=== PATIENT | female | born 2000 | race Caucasian/White ===

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

== ENCOUNTER 2023-02-10 13:32 | Observation (INO) | payer BC, MEDICAID ==
[2023-02-10] MEDS ORDERED: SODIUM CHLORIDE 0.9% 1,000 ML IV STA (14:04)
--- NOTE | 2023-02-10 14:15 | ED ---
Abdominal Pain HPI - General Source: patient Mode of arrival: ambulatory Limitations: no limitations <Ruben Connre - Last Filed: 02/10/23 15:49> <Subhash Minor - Last Filed: 02/10/23 22:32> - General Chief Complaint: Abdominal Pain Stated Complaint: Abd Pain Time Seen by Provider: 02/10/23 14:04 - History of Present Illness Initial Comments: 22-year-old female presenting to the ED with chief complaint of abdominal pain. Patient states pain started 2 days ago. States since onset of pain, pain has increased in severity. Pain is currently a 6/10 in severity. It is achey/sharp and constant in nature. Today she states she started to experience nausea and had one episode of bilious vomiting. No other complaints. (Ruben Conner) - Related Data Home Medications Medication Instructions Recorded Confirmed traZODone HCL 150 mg PO HS PRN 02/10/23 02/10/23 Allergies Allergy/AdvReac Type Severity Reaction Status Date / Time No Known Allergies Allergy Verified 02/10/23 16:36 Review of Systems ROS Other: All systems not noted in ROS Statement are negative. <Ruben Conner - Last Filed: 02/10/23 15:49> ROS Other: All systems not noted in ROS Statement are negative. <Subhash Minor - Last Filed: 02/10/23 22:32> ROS Statement: Those systems with pertinent positive or pertinent negative responses have been documented in the HPI. Past Medical History Past Medical History: Asthma History of Any Multi-Drug Resistant Organisms: None Reported Past Surgical History: Tonsillectomy Additional Past Surgical History / Comment(s): left hip surgery Past Psychological History: Anxiety, Depression Smoking Status: Current every day smoker Past Alcohol Use History: Occasional Past Drug Use History: Marijuana <Ruben Conner - Last Filed: 02/10/23 15:49> General Exam Limitations: no limitations General appearance: alert, in no apparent distress Head exam: Present: atraumatic, normocephalic Eye exam: Present: normal appearance ENT exam: Present: mucous membranes moist Respiratory exam: Present: normal lung sounds bilaterally Cardiovascular Exam: Present: regular rate GI/Abdominal exam: Present: soft, tenderness (Tenderness in the right lower quadrant, negative Rosving's sign, positive psoas sign), normal bowel sounds Extremities exam: Present: normal inspection Neurological exam: Present: alert, oriented X3 Skin exam: Present: warm, dry <Ruben Conner - Last Filed: 02/10/23 15:49> Course <Subhash Minor - Last Filed: 02/10/23 22:32> Vital Signs 02/10/23 02/10/23 02/10/23 13:38 18:05 21:47 Temperature 98.6 F Pulse Rate 83 98 84 Respiratory 20 20 20 Rate Blood Pressure 114/79 115/71 114/77 O2 Sat by Pulse 99 98 99 Oximetry - Reevaluation(s) Reevaluation #1: 02/10/23 22:26 The patient was endorsed to me at shift change pending CAT scan results. (Subhash Minor) Medical Decision Making - Lab Data Result diagrams: 02/10/23 14:43 02/10/23 14:43 <Ruben Conner - Last Filed: 02/10/23 15:49> - Lab Data Result diagrams: 02/10/23 14:43 02/10/23 14:43 <Subhash Minor - Last Filed: 02/10/23 22:32> - Medical Decision Making Was pt. sent in by a medical professional or institution (, PA, MACHINIST/MACHINE BUILDER, urgent care, hospital, or [place]...) When possible be specific @ -Sent in by PCP to rule out appendicitis Did you speak to anyone other than the patient for history (EMS, parent, family, police, friend...)? What history was obtained from this source @ -[No] Did you review nursing and triage notes (agree or disagree)? Why? @ -[I reviewed and agree with nursing and triage notes] Were old charts reviewed (outside hosp., previous admission, EMS record, old EKG, old radiological studies, urgent care reports/EKG's, [place] health [place] records)? Report findings @ -[No old charts were reviewed] Differential Diagnosis (chest pain, altered mental status, abdominal pain women, abdominal pain men, vaginal bleeding, weakness, fever, dyspnea, syncope, headache, dizziness, GI bleed, back pain, seizure, CVA, palpatations, mental health, musculoskeletal)? @ -Differential Abdominal Pain Women: Appendicitis, Cholecystitis, diverticulosis, ischemic bowel, pancreatitis, hepatitis, UTI, gastroenteritis, AAA, incarcerated hernia, bowel obstruction, constipation, inflammatory bowel, hepatitis, peptic ulcer disease, splenic infarction, perforated viscus, vulvitis, ovarian torsion, PID, kidney stone, placenta abruption, this is not meant to be an all-inclusive list EKG interpreted by me (3pts min.). @ -[As above] X-rays interpreted by me (1pt min.). @ -[None done] CT interpreted by me (1pt min.). @ -N/A pending sign out U/S interpreted by me (1pt. min.). @ -[None done] What testing was considered but not performed or refused? (CT, X-rays, U/S, labs)? Why? @ -[None] What meds were considered but not given or refused? Why? @ -[None] Did you discuss the management of the patient with other professionals (professionals i.e. , PA, MACHINIST/MACHINE BUILDER, lab, RT, psych nurse, social work specialist, news cameraman, teacher, special technical operations officer, case manager specialist)? Give summary @ -[No] Was smoking cessation discussed for >3mins.? @ -[No] Was critical care preformed (if so, how long)? @ -[No] Were there social determinants of health that impacted care today? How? (Homelessness, low income, unemployed, alcoholism, drug addiction, transportation, low edu. Level, literacy, decrease access to med. care, alf, rehab)? @ -[No] Was there de-escalation of care discussed even if they declined (Discuss DNR or withdrawal of care, Hospice)? DNR status @ -[No] What co-morbidities impacted this encounter? (DM, HTN, Smoking, COPD, CAD, Cancer, CVA, ARF, Chemo, Hep., AIDS, mental health diagnosis, sleep apnea, morbid obesity)? @ -[None] Was patient admitted / discharged? Hospital course, mention meds given and route, prescriptions, significant lab abnormalities, going to OR and other pertinent info. @ -[hospital course] (Ruben Conner) Overt evidence of appendicitis. Patient did remain tender at McBurney's point. I did consult Dr. Pelletier who did recommend an ultrasound prior to any further consideration is ultrasound does show evidence of a complex cyst in the right ovary hemorrhagic cyst is considered. I did give her the results she did recommend admission for observation to medicine I did discuss also the case with Dr. Ballard and with Dr. Broussard. Patient will ultimately be admitted to the medicine service with consultation by surgery and TRAINING PERSONNEL SUPERVISOR.Was pt. sent in by a medical professional or institution (, [facility]HAM, MACHINIST/MACHINE BUILDER, urgent care, hospital, or [place]...) hen possibe be specific @ -[Ruben ROSARIO] Did you speak to anyone other than the patient for history (EMS, parent, family, police, friend...)? What history was otaned from this source @ -[No] Did you review nursing and triage notes (aree or disagree)? Why? @ -[I reviewed and agreewith nursing and triage notes] Were old charts reviewed (outside hosp., previous admission, EMS record, old EKG, old radiological studies, urgent care reports/EKG's, [place] rcords)? Report findings @ -[No old charts were reviewed] Differential Diagnosis (chest pain, altered mental status, abdominal pain women, abdominal pain men, vaginal bleeding, weakness, fever, dyspnea, syncope, headache, dizziness, GI bleed, back pain, seizure, CVA, palpatations, mental halth, musculoseletal)? @ -[Abdominal pain] EKG interreted byme (3pts min.). @ -[Not done] X-rays intepreted byme (1pt min.). @ -[None done] CT interpreted by me (1pt min.). @ -CT imaging interpreted by me evidence of appendicolith but no evidence of overt appendicitis ultrasound did show evidence of a complex right ovarian cyst and hemorrhagic cyst considered] U/S interreted by e (1pt. min.). @ -[None done] What testing was considered but not performed or refused? (CT,X-edwin, U/S, labs)? Why? @ -[None] What meds were considered but nt gien or refused? Why? @ -[None] Did you discuss the management of the patient with other professionals (vinicio cali i.e. , ABRAHAM, MACHINIST/MACHINE BUILDER, lab, RT, psych nurse, social work specialist, news cameraman, teacher, special technical operations officer, software project manager)? Give summary @ -[Dr. Pelletier, and Dr. Broussard] Was smoking cessatin iscussed for >3mins.? @ -[No] Was critical care preored (if so, how long)? @ -[No] Were there social determinants of health that impacted care today? How? (Homelessness, low income, unemployed, alcoholism, drug addiction, transportation, low edu. Level, literacy, decrease access tome. care, alf, re hab)? @ -[No] Was there de-escalation of care discussed even if they declined (Discuss DNR or withdrawal of cre Hospice)? DNR status @ -[No] What co-morbidities impacted this encounter? (DM, HTN, Smoking, COPD, CAD, Cancer, CVA, ARF, Chemo, Hep., AIDS, mental health diagnosis, slee apna, morbid obesity)? @ -[None] Was patient admitted / discharged? Hospital course, mention meds given and route, prescriptions, significant lab abnormalities, going to OR nd other pertinent info. @ -[Patient was admitted for clos observation and reevaluation] Undiagnosed new problem it uncertain prognosis? @ -[No] Drug Therapy requiring intensive monitoring for toxicity (Heparin, Ntr, Insulin, Cardizem)? @ -[No] er any procedures done? @ -[No] Diagnosis/symptom? @ -[Abdominal pain, appendicolih, right ovarian complex cyst] Acute, or Chroic, o Acute on Chronic? @ -[Acute] Uncomplicated (without systemic symptoms) or Complicted (sytemic symptoms)? @ -uncomplicated Sdeeffects of treatment? @ -[No] Exacerbation, Progression o Severe Exacerbation? @ -[No] Poses a threat to life or bodily function? How? (Chest pain, USA, IA, pneumonia, PE, COPD, DKA, ARF, appy, cholecystitis, CVA, Diverticulitis, Homicidal, Suicidal, threat to staff... ad ll critical care pts) @ -[No] (Subhash Minor) - Lab Data Lab Results 02/10/23 02/10/23 02/10/23 Range/Units 14:43 14:43 15:13 WBC 5.7 (4.0-11.0) k/uL RBC 4.44 (3.80-5.40) m/uL Hgb 11.5 (11.4-16.0) gm/dL Hct 34.9 (34.0-46.0) % MCV 78.6 L (80.0-100.0) fL MCH 25.8 (25.0-35.0) pg MCHC 32.8 (31.0-37.0) g/dL RDW 14.8 (11.5-15.5) % Plt Count 268 (150-450) k/uL MPV 7.6 Neutrophils % 69 % Lymphocytes % 20 % Monocytes % 7 % Eosinophils % 1 % Basophils % 1 % Neutrophils # 4.0 (1.3-7.7) k/uL Lymphocytes # 1.2 (1.0-4.8) k/uL Monocytes # 0.4 (0-1.0) k/uL Eosinophils # 0.1 (0-0.7) k/uL Basophils # 0.0 (0-0.2) k/uL Sodium 139 (137-145) mmol/L Potassium 4.2 (3.5-5.1) mmol/L Chloride 108 H (98-107) mmol/L Carbon Dioxide 22 (22-30) mmol/L Anion Gap 9 mmol/L BUN 9 (7-17) mg/dL Creatinine 0.59 (0.52-1.04) mg/dL Est GFR (CKD-EPI)AfAm >90 (>60 ml/min/1.73 sqM) Est GFR (CKD-EPI)NonAf >90 (>60 ml/min/1.73 sqM) Glucose 74 (74-99) mg/dL Calcium 9.0 (8.4-10.2) mg/dL Total Bilirubin 0.2 (0.2-1.3) mg/dL AST 18 (14-36) U/L ALT 15 (4-34) U/L Alkaline Phosphatase 83 (38-126) U/L Total Protein 6.9 (6.3-8.2) g/dL Albumin 4.0 (3.5-5.0) g/dL Amylase 72 (30-110) U/L Lipase 50 (23-300) U/L Urine Color Light Yellow Urine Appearance Turbid H (Clear) Urine pH 8.0 (5.0-8.0) Ur Specific Hines 1.019 (1.001-1.035) Urine Protein Negative (Negative) Urine Glucose (UA) Negative (Negative) Urine Ketones Negative (Negative) Urine Blood Negative (Negative) Urine Nitrite Negative (Negative) Urine Bilirubin Negative (Negative) Urine Urobilinogen <2.0 (<2.0) mg/dL Ur Leukocyte Esterase Negative (Negative) Urine RBC 2 (0-5) /hpf Urine WBC 3 (0-5) /hpf Ur Squamous Epith Cells 12 H (0-4) /hpf Amorphous Sediment Few H (None) /hpf Urine Bacteria Rare H (None) /hpf Urine HCG, Qual (Not Detectd) 02/10/23 Range/Units 15:14 WBC (4.0-11.0) k/uL RBC (3.80-5.40) m/uL Hgb (11.4-16.0) gm/dL Hct (34.0-46.0) % MCV (80.0-100.0) fL MCH (25.0-35.0) pg MCHC (31.0-37.0) g/dL RDW (11.5-15.5) % Plt Count (150-450) k/uL MPV Neutrophils % % Lymphocytes % % Monocytes % % Eosinophils % % Basophils % % Neutrophils # (1.3-7.7) k/uL Lymphocytes # (1.0-4.8) k/uL Monocytes # (0-1.0) k/uL Eosinophils # (0-0.7) k/uL Basophils # (0-0.2) k/uL Sodium (137-145) mmol/L Potassium (3.5-5.1) mmol/L Chloride (98-107) mmol/L Carbon Dioxide (22-30) mmol/L Anion Gap mmol/L BUN (7-17) mg/dL Creatinine (0.52-1.04) mg/dL Est GFR (CKD-EPI)AfAm (>60 ml/min/1.73 sqM) Est GFR (CKD-EPI)NonAf (>60 ml/min/1.73 sqM) Glucose (74-99) mg/dL Calcium (8.4-10.2) mg/dL Total Bilirubin (0.2-1.3) mg/dL AST (14-36) U/L ALT (4-34) U/L Alkaline Phosphatase (38-126) U/L Total Protein (6.3-8.2) g/dL Albumin (3.5-5.0) g/dL Amylase (30-110) U/L Lipase (23-300) U/L Urine Color Urine Appearance (Clear) Urine pH (5.0-8.0) Ur Specific Hines (1.001-1.035) Urine Protein (Negative) Urine Glucose (UA) (Negative) Urine Ketones (Negative) Urine Blood (Negative) Urine Nitrite (Negative) Urine Bilirubin (Negative) Urine Urobilinogen (<2.0) mg/dL Ur Leukocyte Esterase (Negative) Urine RBC (0-5) /hpf Urine WBC (0-5) /hpf Ur Squamous Epith Cells (0-4) /hpf Amorphous Sediment (None) /hpf Urine Bacteria (None) /hpf Urine HCG, Qual Not Detected (Not Detectd) Disposition <Ruben Conner - Last Filed: 02/10/23 15:49> Decision Date: 02/10/23 Decision Time: 22:00 <Subhash Minor - Last Filed: 02/10/23 22:32> Clinical Impression: Acute abdominal pain in right lower quadrant, Appendicolith, Right ovarian cyst Disposition: ADMITTED IP TO THIS [facility] Condition: Stable Referrals: Marshall English MD [Primary Care Provider] - 1-2 days
[2023-02-10 14:50] LABS: Basophils % (A) 1 %; Eosinophils # (A) 0.1 k/uL (0-0.7); Eosinophils % (A) 1 %; HCT 34.9 % (34.0-46.0); HGB 11.5 gm/dL (11.4-16.0); Lymphocytes # (A) 1.2 k/uL (1.0-4.8); Lymphocytes % (A) 20 %; MCH 25.8 pg (25.0-35.0); MCHC 32.8 g/dL (31.0-37.0); MCV 78.6 fL (80.0-100.0); Mean Platelet Volume 7.6; Monocytes # (A) 0.4 k/uL (0-1.0); Monocytes % (A) 7 %; Neutrophils % (A) 69 %; Platelet Count 268 k/uL (150-450); RBC 4.44 m/uL (3.80-5.40); RDW 14.8 % (11.5-15.5); WBC 5.7 k/uL (4.0-11.0)
[2023-02-10 15:12] LABS: ALT 15 U/L (4-34); AST 18 U/L (14-36); African American GFR (CKD) >90 (>60 ml/min/1.73 sqM); Alkaline Phosphatase 83 U/L (38-126); Amylase 72 U/L (30-110); Anion Gap 9 mmol/L; Blood Urea Nitrogen 9 mg/dL (7-17); Carbon Dioxide 22 mmol/L (22-30); Chloride 108 mmol/L (98-107); Glucose 74 mg/dL (74-99); Lipase 50 U/L (23-300); Non-African American GFR(CKD) >90 (>60 ml/min/1.73 sqM); Potassium 4.2 mmol/L (3.5-5.1); Sodium 139 mmol/L (137-145); Total Bilirubin 0.2 mg/dL (0.2-1.3); Total Protein 6.9 g/dL (6.3-8.2)
[2023-02-10 16:12] LABS: Amorphous Sediment,Urine Few /hpf; Appearance,Urine Turbid (Clear); Bacteria,Urine Rare /hpf; Bilirubin,Urine Negative (Negative); Blood,Urine Negative (Negative); Color,Urine Light Yellow; Glucose,Urine (UA) Negative (Negative); Ketones,Urine Negative (Negative); Leukocyte Esterase,Urine Negative (Negative); Nitrite,Urine Negative (Negative); Protein,Urine Negative (Negative); RBC,Urine 2 /hpf (0-5); Specific Gravity,Urine 1.019 (1.001-1.035); Squamous Epithelial Cell,Urine 12 /hpf (0-4); Urobilinogen,Urine <2.0 mg/dL (<2.0); WBC,Urine 3 /hpf (0-5)
[2023-02-10] MEDS ORDERED: KETOROLAC 15 MG/ML 1 ML VIAL IVP STA (16:56)
--- NOTE | 2023-02-10 17:09 | CT ---
EXAMINATION TYPE: CT abdomen pelvis wo con CT DLP: 496.6 mGycm, Automated exposure control for dose reduction was used. DATE OF EXAM: 02/10/2023 4:54 PM COMPARISON: CT abdomen pelvis most recent from 09/19/2020 . CLINICAL INDICATION:Female, 22 years old with history of RLQ pain; RT sided abdominal pain TECHNIQUE: Standard CT of the abdomen and pelvis without IV or oral contrast. Lack of IV or oral co ntrast limits evaluation of solid and hollow organ viscera. Coronal and sagittal reformats were perfo rmed. FINDINGS: LOWER CHEST: Visualized lungs are clear. Pectus excavatum redemonstrated. ABDOMEN LIVER: Unremarkable noncontrast appearance. GALLBLADDER AND BILE DUCTS: Unremarkable. PANCREAS: Unremarkable noncontrast appearance. SPLEEN: Unremarkable noncontrast appearance. ADRENAL GLANDS: Unremarkable noncontrast appearance. KIDNEYS AND URETERS: No evidence of hydronephrosis or renal calculus. The ureters are unremarkable. PELVIS BLADDER: Under distended, limiting evaluation REPRODUCTIVE: Unremarkable. ABDOMEN & PELVIS STOMACH AND BOWEL: Stomach and duodenum are unremarkable. No focal bowel wall thickening or surroundi ng inflammatory changes. No evidence of bowel obstruction. The appendix is normal in caliber without surrounding inflammatory changes. Appendicoliths identified. PERITONEUM: No evidence of pneumoperitoneum. Trace free fluid in the pelvis. VASCULATURE: No evidence of aortic aneurysm. Few pelvic fluid is identified. MUSCULOSKELETAL: No acute osseous abnormalities LYMPH NODES: No gross evidence for lymphadenopathy. SOFT TISSUE/ABDOMINAL WALL: Unremarkable IMPRESSION: 1. No acute abdominal/pelvic process. 2. Appendix is normal in caliber with a few appendicoliths identified. No surrounding inflammatory ch anges to suggest acute appendicitis.
--- NOTE | 2023-02-10 19:04 | US ---
EXAMINATION TYPE: US transvaginal DATE OF EXAM: 02/10/2023 COMPARISON: CT abdomen pelvis 02/10/2023 CLINICAL INDICATION: Female, 22 years old with history of Right lower quadrant abdominal pain; RLQ pa in. Portable EC patient TECHNIQUE: Transvaginal (TV). Date of LMP: 01/07/23, G0 EXAM MEASUREMENTS: Uterus: 7.7 x 5.2 x 3.7 cm Endometrial Stripe: 1.3 cm Right Ovary: 4.4 x 3.4 x 2.8 cm Left Ovary: 3.3 x 2.3 x 1.7 cm 1. Uterus: Anteverted wnl 2. Endometrium: wnl 3. Right Ovary: Complex cystic appearing lesion = 3.0 x 2.8 x 2.1 cm 4. Left Ovary: wnl Spectral, color and waveform doppler imaging shows good arterial and venous flow within the ovaries ; there is no evidence for ovarian torsion. 5. Bilateral Adnexa: wnl 6. Posterior cul-de-sac: free fluid Small amount of simple appearing free fluid in the pelvis. IMPRESSION: Complex cystic lesion within the right ovary with characteristics favored to represent a hemorrhagic cyst. Consider follow-up ultrasound in 6-12 weeks to assess resolution.
[2023-02-10] MEDS ORDERED: traMADol 50 MG TAB PO STA (22:04)
[2023-02-10] MEDS ORDERED: NALOXONE 0.4 MG/ML 1 ML VIAL IV PRN (22:33)
[2023-02-10] MEDS: SODIUM CHLORIDE 0.9% 1,000 ML IV SCH (22:45)
[2023-02-10 23:50] VITALS: RESP 15
[2023-02-10] MEDS: KETOROLAC 15 MG/ML 1 ML VIAL IVP PRN (23:57)
[2023-02-11] MEDS: KETOROLAC 15 MG/ML 1 ML VIAL IVP PRN (05:56)
[2023-02-11] MEDS: SODIUM CHLORIDE 0.9% 1,000 ML IV SCH (05:57)
[2023-02-11 08:16] VITALS: BP 119/77; PULSE 46; TEMP 98
--- NOTE | 2023-02-11 08:51 | P.OBCN ---
History of Present Illness Consult date: 02/11/23 Reason for consult: pelvic pain, ovarian cyst Chief complaint: Right lower quadrant pain History of present illness: This is a 22-year-old 0 who presents with a three-day history of worsening right lower quadrant pain. She presented to the emergency room yesterday. Pelvic ultrasound showed a non-enlarged uterus with a 3 cm complex cyst on the right ovary. There was normal Doppler flow to bilateral ovaries w ithout any evidence of torsion. The cyst on the right ovary favors a hemorrhagic cyst. The patient also had an abdominal CT which was negative for acute processes. A few appendicoliths were noted but there are was no evidence of acute appendicitis. The CT was otherwise unremarkable. The patient states upon presentation the pain was a 7 out of 10 on the severity scale and now today is 6 after receiving pain medication. She has had cysts on her ovaries in the past and she has had ruptured cysts in the past, she states that this pain is more severe than her prior experiences. She has had some nausea over the past 3 days with the pain, however she denies vomiting. She denies any fevers or chills during this episode of pain. She denies chest pain or shortness of breath. Urine test is negative upon admission. Laboratory workup is negative for leukocytosis and is entirely unremarkable. Gynecologic history: The patient has regular monthly menses occurring every 28 days, periods last approximately 4 days. She describes her periods as medium flow. She denies any dysmenorrhea or trouble with periods. She has been sexually active in the past but is not currently sexually active. She declines STI screening at this time. She has been prescribed oral contraceptive pills however she is not taking them. Review of Systems Genitourinary: Reports as per HPI Menstruation: Reports as per HPI, Reports period normal Past Medical History Past Medical History: Asthma History of Any Multi-Drug Resistant Organisms: None Reported Past Surgical History: Tonsillectomy Additional Past Surgical History / Comment(s): left hip surgery Past Psychological History: Anxiety, Depression, PTSD Smoking Status: Current every day smoker, Vaper Past Alcohol Use History: Occasional Past Drug Use History: Marijuana Medications and Allergies Home Medications Medication Instructions Recorded Confirmed Type traZODone HCL 150 mg PO HS PRN 02/10/23 02/10/23 History Allergies Allergy/AdvReac Type Severity Reaction Status Date / Time No Known Allergies Allergy Verified 02/10/23 16:36 Exam Vital Signs Temp Pulse Pulse Resp BP BP Pulse Ox 02/11/23 07:12 98 F 46 L 15 119/77 100 02/10/23 23:49 97.7 F 57 L 15 113/73 02/10/23 21:47 84 20 114/77 99 02/10/23 18:05 98 20 115/71 98 02/10/23 13:38 98.6 F 83 20 114/79 99 Intake and Output 02/10/23 02/11/23 02/11/23 22:59 06:59 14:59 Other: Voiding Method Toilet # Voids 2 Weight 68.039 kg Focused physical exam was performed. This is a pleasant 22-year-old female in no apparent distress. She is warm and well-perfused. She has not labored breathing and is conversing without difficulty. Abdomen is soft, non-tender, and non-distended. There is moderate tenderness in the right lower quadrant to palpation. There is no rebound tenderness or guarding. No masses are noted on abdominal exam. Extremities are non-edematous and non-tender. Results Result Diagrams: 02/10/23 14:43 02/10/23 14:43 Abnormal Lab Results - Last 24 Hours (Table) 02/10/23 02/10/23 02/10/23 Range/Units 14:43 14:43 15:13 MCV 78.6 L (80.0-100.0) fL Chloride 108 H (98-107) mmol/L Urine Appearance Turbid H (Clear) Ur Squamous Epith Cells 12 H (0-4) /hpf Amorphous Sediment Few H (None) /hpf Urine Bacteria Rare H (None) /hpf Assessment and Plan Assessment: 22 year old G0 with RLQ pain x 3 days and finding of complex 3cm right ovarian cyst on ultrasound, favoring ruptured hemorrhagic cyst Plan: 1. RLQ pain. Given the clinical presentation and ultrasound findings, I suspect Ruptured hemorrhagic cyst. I discussed with the patient that typically the pain with ruptured cysts is self-limited and tends to improve over the course of a few days. I counseled the patient that if the pain continues worsening rather than improving the possibility of appendicitis is higher. However, given the unremarkable labs, vitals, and CT abdomen this seems unlikely to be appendicitis. 2. Complex right ovarian cyst. Recommend follow up ultrasound in 12 weeks to assess for resolution of the right ovarian cyst. There is no evidence of torsion on the study. Dispo: Suspect hemorrhagic cyst. From a gynecologic standpoint the patient is stable for discharge home with pain medications. She can follow up at [facility] or with her own hand paster for a repeat study of the ovary in 12 weeks. Time with Patient: Less than 30 (15 minutes)
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
--- NOTE | 2023-02-11 13:15 | P.DS ---
Providers Date of admission: 02/10/23 22:33 Attending physician: Elfego Ballard MD Consults: 02/10/23 22:33 Consult Physician Routine Consulting Provider: Ophelia Mike Consult Reason/Comments: Right ovarian cyst, abdominal pain Do you want consulting provider notified?: Already Contacted Consult Physician Urgent Consulting Provider: Ann-Marie Gomez Consult Reason/Comments: Right lower quadrant abdominal pain Do you want consulting provider notified?: Already Contacted 02/11/23 04:35 Consult Physician Routine Consulting Provider: Marshall English Consult Reason/Comments: known to the pt Do you want consulting provider notified?: Yes, Notify in am Primary care physician: Marshall English [place] [facility] Course: Refer to history of present illness for further details Patient Condition at Discharge: Stable Plan - Discharge Summary New Discharge Prescriptions: New Naproxen [Naprosyn] 250 mg PO QID PRN #30 tab PRN Reason: Pain traMADol HCl [Ultram] 50 mg PO Q6HR PRN #20 tab PRN Reason: Pain No Action traZODone HCL 150 mg PO HS PRN PRN Reason: Insomnia Discharge Medication List traZODone HCL 150 mg PO HS PRN 02/10/23 [History] Naproxen [Naprosyn] 250 mg PO QID PRN #30 tab 02/11/23 [Rx] traMADol HCl [Ultram] 50 mg PO Q6HR PRN #20 tab 02/11/23 [Rx] Follow up Appointment(s)/Referral(s): Marshall English MD [Primary Care Provider] - 3 Days Ophelia Mike MD [STAFF PHYSICIAN] - 1 Week Patient Instructions/Handouts: Ovarian Cyst (DC), Acute Abdominal Pain (DC) Discharge Disposition: HOME SELF-CARE
== END 2023-02-11 11:30 | disposition home or self-care (01) ==
LOC: EC 13:32 → 6NMEDSUR 22:33
PROVIDERS: ADMIT Internal Medicine; ATTEND Internal Medicine
DX: N83.291 Other ovarian cyst, right side (principal); J45.909 Unspecified asthma, uncomplicated; R00.1 Bradycardia, unspecified; K38.1 Appendicular concretions; F32.A Depression, unspecified; F43.10 Post-traumatic stress disorder, unspecified; F41.9 Anxiety disorder, unspecified; F17.290 Nicotine dependence, other tobacco product, uncomplicated; Z87.828 Personal history of other (healed) physical injury and trauma; Z98.890 Other specified postprocedural states; Z71.6 Tobacco abuse counseling; Z91.148 Patient's other noncompliance with medication regimen for other reason
CPT/HCPCS: 96376 ×2; 96361; 96374; 99285; 36415; 80053; 82150; 83690; 85025; 81001; 81025; 93975; 76830; 74176; G0378 ×2; J1885 ×2